=== PATIENT | female | born 1990 | race Caucasian/White ===

== ENCOUNTER 2021-03-11 14:15 | Emergency (ER) | payer MEDICAID, OTHER ==
[2021-03-11 14:19] VITALS: BP 162/106; PULSE 68
[2021-03-11] MEDS ORDERED: Ketorolac 30 MG/ML SDV IVPUSH ONE (14:44)
[2021-03-11] MEDS ORDERED: methylPREDNISolone Sodium Succinate 125 MG/2 ML SDV IVPUSH ONE (14:44)
--- NOTE | 2021-03-11 14:44 | EDM.PDOC ---
ED HPI GENERAL MEDICAL PROBLEM - General Chief Complaint: Back Pain or Injury Stated Complaint: BACK PAIN Time Seen by Provider: 03/11/21 14:20 Source of Information: Reports: Patient History Limitations: Reports: No Limitations - History of Present Illness INITIAL COMMENTS - FREE TEXT/NARRATIVE: 30 YO WF PRESENTS TO ER COMPLAINING OF LOW BACK PAIN X 60 DAYS. PT REPORTS SHE HAD A FALL IN DECEMBER 2020 WHERE SHE LANDED DIRECTLY ON HER TAILBONE. PT REPORTS SHE WENT TO ER IN [place] WHERE SHE WAS PRESCRIBED VOLTAREN GEL AND ZANAFLEX WITHOUT IMPROVEMENT. PT REPORTS SHE THINKS SHE REINJURED HER BACK SWEEPING AT WORK AND SINCE THAT TIME SHE HAS BEEN IN PAIN DAILY. PT HAS BEEN SEEING A CHIROPRACTOR FOR THE LAST MONTH WITHOUT IMPROVEMENT. PT IS SCHEDULED FOR PHYSICAL THERAPY BUT CAME TO ER TODAY FOR IMAGING SINCE NONE HAS BEEN DONE PRIOR TO INJURY. PT DENIES FEVER/CHILLS, NO NAUSEA/VOMITING, NO URINARY SYMPTOMS OR HISTORY OF KIDNEY STONES. PT DENIES WEAKNESS OR PARAESTHESIA. PT DENIES SADDLE ANESTHESIA OR BOWEL/BLADDER DYSFUNCTION. Duration: Day(s): (60), Chronic Location: Reports: Back Quality: Reports: Ache Severity: Moderate Improves with: Reports: Rest Worsens with: Reports: Movement Associated Symptoms: Reports: No Other Symptoms Middle Back Pain Score (Numeric/FACES): 10 - Related Data Allergies Allergy/AdvReac Type Severity Reaction Status Date / Time amoxicillin Allergy Hives Verified 03/11/21 15:14 Latex, Natural Rubber Allergy Hives Verified 03/11/21 15:14 Home Meds: Home Meds Albuterol Sulfate [Proventil Hfa] 1 - 2 puff INH Q4HR PRN 05/05/16 [History] Multivitamin with Minerals [Multiple Vitamin] 1 tab PO DAILY 05/05/16 [History] Vit D3/Folic Acid/B2/B6/B12 [Folgard Tablet] 1 each PO DAILY 05/05/16 [History] predniSONE [Prednisone] 20 mg PO DAILY #15 tablet 03/11/21 [Rx] traMADol [Ultram] 50 mg PO Q6H PRN #15 tab 03/11/21 [Rx] Past Medical History HEENT History: Reports: Sinusitis Respiratory History: Reports: Asthma 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, - Infectious Disease History Infectious Disease History: Reports: Chicken Pox Social & Family History - Family History Respiratory: Reports: Asthma GI: Reports: None - Tobacco Use Tobacco Use Status *Q: Never Tobacco User - Caffeine Use Caffeine Use: Reports: Coffee - Recreational Drug Use Recreational Drug Use: No ED ROS GENERAL - Review of Systems Review Of Systems: See Below Constitutional: Reports: No Symptoms HEENT: Reports: No Symptoms Respiratory: Reports: No Symptoms Cardiovascular: Reports: No Symptoms Endocrine: Reports: No Symptoms GI/Abdominal: Reports: No Symptoms : Reports: No Symptoms Musculoskeletal: Reports: Back Pain Skin: Reports: No Symptoms Neurological: Reports: No Symptoms Psychiatric: Reports: No Symptoms Hematologic/Lymphatic: Reports: No Symptoms Immunologic: Reports: No Symptoms ED EXAM,LOWER BACK PAIN/INJURY - Physical Exam Exam: See Below Exam Limited By: No Limitations General Appearance: Alert, WD/WN, No Apparent Distress Head: Atraumatic, Normocephalic Neck: Normal Inspection, Supple, Non-Tender, Full Range of Motion Respiratory/Chest: No Respiratory Distress, Lungs Clear, Normal Breath Sounds, No Accessory Muscle Use, Chest Non-Tender Cardiovascular: Normal Peripheral Pulses, Regular Rate, Rhythm, No Edema, No Gallop, No JVD, No Murmur, No Rub GI/Abdominal: Normal Bowel Sounds, Soft, Non-Tender, No Organomegaly, No Distention, No Abnormal Bruit, No Mass Back Exam: Full Range of Motion, Muscle Spasm, Paraspinal Tenderness. No: CVA Tenderness (L), CVA Tenderness (R), Decreased Range of Motion, Vertebral Tenderness Extremities: Normal Inspection, Normal Range of Motion, Non-Tender, No Pedal Edema, Normal Capillary Refill Neurological: Alert, Normal Mood/Affect, Normal Dorsiflexion, CN II-XII Intact, Normal Plantar Flexion, Normal Gait, Normal Reflexes, No Motor/Sensory Deficits, Oriented x 3 Psychiatric: Normal Affect, Normal Mood Skin Exam: Warm, Dry, Intact, Normal Color, No Rash Course - Vital Signs Last Recorded V/S: Last Vital Signs Temp 96.9 F 03/11/21 14:19 Pulse 68 03/11/21 14:19 Resp 20 03/11/21 14:19 BP 162/106 H 03/11/21 14:19 Pulse Ox - Orders/Labs/Meds Orders: Active Orders 24 hr Category Date Time Status Peripheral IV Care [RC] . DIRECTED Care 03/11/21 14:45 Ordered Lumbar Spine 2 or 3V [CR] Stat Exams 03/11/21 14:25 Ordered Sodium Chloride 0.9% [Saline Flush] Med 03/11/21 14:45 Ordered 10 ml FLUSH Q8HR PRN Peripheral IV Insertion Adult [OM.PC] Routine Oth 03/11/21 14:45 Ordered Medication Orders Sodium Chloride (Sodium Chloride 0.9% 10 Ml Syringe) 10 ml FLUSH Q8HR PRN PRN Reason: keep vein open Last Admin: 03/11/21 15:13 Dose: 10 ml Documented by: Labs: Laboratory Tests 03/11/21 03/11/21 Range/Units 14:30 14:30 Specimen Type Urinblad Urine Color Yellow (YELLOW) Urine Appearance Cloudy H (CLEAR) Urine pH 5.5 (5.0-9.0) Ur Specific [place] >= 1.030 (1.005-1.030) Urine Protein 30 H (NEGATIVE) mg/dL Urine Glucose (UA) Negative (NEGATIVE) mg/dL Urine Ketones Negative (NEGATIVE) mg/dL Urine Occult Blood Large H (NEGATIVE) Urine Nitrite Negative (NEGATIVE) Urine Bilirubin Small H (NEGATIVE) Urine Urobilinogen 0.2 (0.2-1.0) E.U./dL Ur Leukocyte Esterase Negative (NEGATIVE) Urine RBC Semi-packed (0-5) /HPF Urine WBC 0-5 (0-5) /HPF Ur Epithelial Cells Few /LPF Urine Bacteria Few (NONE TO FEW) /HPF Urine HCG, Qual Negative (NEGATIVE) Meds: Medications Generic Name Dose Route Start Last Admin Trade Name Any PRN Reason Stop Dose Admin Sodium Chloride 10 ml 03/11/21 14:45 03/11/21 15:13 Sodium Chloride 0.9% 10 Ml Syringe FLUSH 10 ml Q8HR PRN Administration keep vein open Discontinued Medications Generic Name Dose Route Start Last Admin Trade Name Freq PRN Reason Stop Dose Admin Diazepam 5 mg 03/11/21 14:44 03/11/21 15:09 Diazepam 10 Mg/2 Ml Syringe IVPUSH 03/11/21 14:45 5 mg ONETIME ONE Administration Ketorolac Tromethamine 30 mg 03/11/21 14:44 03/11/21 15:08 Ketorolac 30 Mg/Ml Sdv IVPUSH 03/11/21 14:45 30 mg ONETIME ONE Administration Methylprednisolone Sodium Succinate 125 mg 03/11/21 14:44 03/11/21 15:07 Methylprednisolone Sodium Succinate 125 Mg/2 Ml Sdv IVPUSH 03/11/21 14:45 125 mg ONETIME ONE Administration - Radiology Interpretation Free Text/Narrative:: LUMBAR SPINE- NAD - Re-Assessments/Exams Free Text/Narrative Re-Assessment/Exam: 03/11/21 15:28 PT REPORTS IMPROVEMENT AFTER MEDICATION. PT WILL BE DISCHARGED HOME Departure - Departure Time of Disposition: 15:28 Disposition: Home, Self-Care 01 Condition: Fair Clinical Impression: Acute exacerbation of chronic low back pain - Discharge Information Prescriptions: predniSONE [Prednisone] 20 mg PO DAILY #15 tablet traMADol [Ultram] 50 mg PO Q6H PRN #15 tab PRN Reason: Pain Instructions: What You Need to Know About Chronic Back Pain Referrals: PCP,Unknown [Primary Care Provider] - Forms: ED Department Discharge, ED Return to Work/School Form Additional Instructions: 1. DISCHARGE HOME 2. ULTRAM 50MG EVERY 4-6 HOURS NEEDED FOR PAIN 3. PREDNISONE 60MG DAILY WITH FOOD X 5 DAYS 4. HEAT AND STRETCHING TO BACK/LOWER EXTREMITIES TOLERATED 5. PHYSICAL THERAPY SCHEDULED 6. FOLLOW UP WITH PCP FOR FURTHER EVALUATION/TREATMENT/IMAGING NEEDED 7. RETURN TO ER FOR WORSENING SYMPTOMS Sepsis Event Note (ED) - Evaluation Sepsis Screening Result: No Definite Risk - Focused Exam Vital Signs: Vital Signs Temp Pulse Resp BP 03/11/21 14:19 96.9 F 68 20 162/106 H - My Orders Last 24 Hours: My Active Orders 03/11/21 14:25 Lumbar Spine 2 or 3V [CR] Stat 03/11/21 14:45 Peripheral IV Care [RC] . DIRECTED Sodium Chloride 0.9% [Saline Flush] 10 ml FLUSH Q8HR PRN Peripheral IV Insertion Adult [OM.PC] Routine - Assessment/Plan Last 24 Hours: My Active Orders 03/11/21 14:25 Lumbar Spine 2 or 3V [CR] Stat 03/11/21 14:45 Peripheral IV Care [RC] . DIRECTED Sodium Chloride 0.9% [Saline Flush] 10 ml FLUSH Q8HR PRN Peripheral IV Insertion Adult [OM.PC] Routine Assessment:: 1. ACUTE ON CHRONIC BACK PAIN Plan: 1. DISCHARGE HOME 2. ULTRAM 50MG EVERY 4-6 HOURS NEEDED FOR PAIN 3. PREDNISONE 60MG DAILY WITH FOOD X 5 DAYS 4. HEAT AND STRETCHING TO BACK/LOWER EXTREMITIES TOLERATED 5. PHYSICAL THERAPY SCHEDULED 6. FOLLOW UP WITH PCP FOR FURTHER EVALUATION/TREATMENT/IMAGING NEEDED 7. RETURN TO ER FOR WORSENING SYMPTOMS
[2021-03-11] MEDS ORDERED: Sodium Chloride 0.9% 10 ML Syringe FLUSH PRN (14:45)
--- NOTE | 2021-03-11 16:16 | CR ---
[id number] RAD/RAD Lumbar Spine 2-3V EXAM: AP AND LATERAL LUMBAR SPINE. INDICATION: Back pain COMPARISON: No previous similar exam is available for comparison. FINDINGS: No fracture or subluxation is seen. There is preservation of height of disc spaces and vertebrae. The pedicles are intact. IMPRESSION: No fracture or subluxation. Sherman Pena MD 03/11/21 [id number] Thank you for allowing us to participate in the care of your patient.
== END 2021-03-11 15:45 | disposition home or self-care (01) ==
LOC: KA.ED 14:15
DX: M54.5 Low back pain (principal); G89.29 Other chronic pain; J45.909 Unspecified asthma, uncomplicated; Z88.0 Allergy status to penicillin; Z91.040 Latex allergy status; Z79.899 Other long term (current) drug therapy
CPT/HCPCS: 72100; 81001; 81025; 96374; 96375; 99283-25; 99284; J1885; J2930; J3360